=== PATIENT | female | born 1990 | race Caucasian/White ===

== ENCOUNTER → 2020-05-30 | Outpatient (CLI) | payer BC ==
[~2020-05-30] MED LIST: PHENERGAN 25 MG25 M1 PO
== END ==
LOC: EXRD 12:51
DX: E04.2 Nontoxic multinodular goiter (principal)
CPT/HCPCS: 76536

== ENCOUNTER → 2021-07-26 | Outpatient (CLI) | payer BC ==
[2021-07-26 08:25] LABS: HEMOGLOBIN 13.2 gm/dl (12.3-15.3); RED BLOOD COUNT 4.64 M/UL (4.00-5.10); WHITE BLOOD COUNT 6.3 K/UL (4.5-11.0)
[2021-07-26 09:23] LABS: BUN/CREATININE RATIO 14 (0-10)
[2021-07-27 08:18] LABS: VITAMIN D, 25-HYDROXY 27.9 ng/mL (30.0-100.0)
== END ==
LOC: LAB 07:54
PROVIDERS: Nurse Practitioner Family
DX: E53.8 Deficiency of other specified B group vitamins (principal); R00.2 Palpitations; R79.89 Other specified abnormal findings of blood chemistry
CPT/HCPCS: 36415; 80053; 80061; 82607; 82728; 83540; 83550; 84439; 84443; 85025; 86376

== ENCOUNTER → 2021-07-27 | Outpatient (CLI) | payer BC | LOC: US 13:47 | DX: E04.2 Nontoxic multinodular goiter (principal) | CPT/HCPCS: 76536 ==